=== PATIENT | male | born 1975 | race Caucasian/White ===

== ENCOUNTER 2018-03-12 17:11 | Inpatient (IN) | payer MEDICARE ==
[~2018-03-12] VITALS: Ht 149.9 cm; Wt 59.5 kg
[2018-03-12] MEDS ORDERED: DIPROLENE 0.05%50 GM TOPICAL (17:20)
[2018-03-12] MEDS ORDERED: TEMOVATE 0.05%15 G1 TOPICAL (17:20)
[2018-03-12] MEDS ORDERED: MULTI-DAY VITAM1 TAB PO (17:21)
[2018-03-12] MEDS ORDERED: MIRALAX17 GM PO (17:21)
[2018-03-12] MEDS ORDERED: PROZAC40 MG PO (17:21)
[2018-03-12] MEDS ORDERED: DOK100 MG PO (17:21)
[2018-03-12] MEDS ORDERED: NAPROSYN500 MG PO (17:22)
[2018-03-12] MEDS ORDERED: ZOFRAN4 MG PO (17:22)
[2018-03-12] MEDS ORDERED: OMEPRAZOLE40 MG PO (17:22)
[2018-03-12] MEDS ORDERED: PHENERGAN DM SYR5 ML PO (17:23)
[2018-03-12] MEDS ORDERED: TESSALON PERLE100 MG PO (17:23)
[2018-03-12 17:58] LABS: BASOPHILS 0.4 % (0-2); EOSINOPHILS 1.5 % (0-7); HEMATOCRIT 30.6 % (42.0-54.0); HEMOGLOBIN 9.7 g/dL (13.5-17.5); IMMATURE GRANULOCYTES 1.1 % (0-5); LYMPHOCYTES 10.2 % (15-50); MCH 28.2 pg (26.0-34.0); MCHC 31.7 g/dL (31.0-37.0); MEAN PLATELET VOLUME 11.3 fL (7.4-10.4); MONOCYTES 7.8 % (2-11); RBC 3.44 10x6/uL (4.20-6.10); RDW 16.2 % (11.5-14.5); WBC 15.2 10x3/uL (4.8-10.8)
[2018-03-12 18:00] LABS: PLATELET COUNT 341 10x3/uL (130-400)
[2018-03-12 18:16] LABS: ALBUMIN 1.8 g/dL (3.4-5.0); ANION GAP 12.7 mmol/L (8-16); BILIRUBIN - TOTAL 0.29 mg/dL (0.2-1.3); CARBON DIOXIDE 28.7 mmol/L (21.0-32.0); CREATININE - SERUM 1.2 mg/dL (0.6-1.3); POTASSIUM - SERUM 4.4 mmol/L (3.5-5.1); PROTEIN - SERUM 7.8 g/dL (6.4-8.2)
[2018-03-12 19:38] LABS: CKMB 0.3 U/L (0.0-3.6); CREATINE KINASE 22 UL (21-232); PRO BNP 309 pg/mL (0-125); TROPONIN-I < 0.017 ng/mL (0.000-0.060)
[2018-03-13] VITALS (8 sets, daily range): BP systolic 99–124; BP diastolic 51–78; Ht 149.9 cm; Wt 59.5 kg
[2018-03-13 06:37] LABS: ANION GAP 12.3 mmol/L (8-16); CALCIUM 8.7 mg/dL (8.5-10.1); CARBON DIOXIDE 27.7 mmol/L (21.0-32.0); CREATININE - SERUM 1.3 mg/dL (0.6-1.3)
[2018-03-13 06:47] LABS: BASOPHILS 0.3 % (0-2); EOSINOPHILS 1.1 % (0-7); HEMOGLOBIN 9.2 g/dL (13.5-17.5); LYMPHOCYTES 6.9 % (15-50); MCHC 31.7 g/dL (31.0-37.0); MCV 88.1 fL (80.0-100.0); MEAN PLATELET VOLUME 11.4 fL (7.4-10.4); MONOCYTES 7.5 % (2-11); NEUTROPHILS 83.2 % (40-80); PLATELET COUNT 339 10x3/uL (130-400); RBC 3.29 10x6/uL (4.20-6.10); RDW 16.1 % (11.5-14.5); WBC 15.6 10x3/uL (4.8-10.8)
[2018-03-13 17:00] LABS: % SATURATION 12 % (15-55); IRON 19 ug/dl (35-150); TOTAL IRON BIND CAPACITY 157 ug/dl (260-445); UNSAT IRON BIND CAPACITY 138 ug/dl (150-375)
[2018-03-14] VITALS (8 sets, daily range): BP systolic 95–142; BP diastolic 55–70
[2018-03-14 01:21] LABS: APPEARANCE CLEAR (CLEAR); BILIRUBIN NEGATIVE (NEGATIVE); COLOR YELLOW (YELLOW); GLUCOSE NEGATIVE (NEGATIVE); KETONE NEGATIVE (NEGATIVE); NITRITE NEGATIVE (NEGATIVE); PROTEIN NEGATIVE (NEGATIVE); SPECIFIC GRAVITY 1.015 (1.005-1.020); UROBILINOGEN NORMAL (NORMAL)
[2018-03-14 11:42] LABS: BASOPHILS 0.2 % (0-2); EOSINOPHILS 0.4 % (0-7); HEMOGLOBIN 9.3 g/dL (13.5-17.5); LYMPHOCYTES 9.4 % (15-50); MCH 28.3 pg (26.0-34.0); MCHC 32.1 g/dL (31.0-37.0); MCV 88.1 fL (80.0-100.0); MEAN PLATELET VOLUME 11.4 fL (7.4-10.4); MONOCYTES 7.6 % (2-11); NEUTROPHILS 81.4 % (40-80); PLATELET COUNT 332 10x3/uL (130-400); RBC 3.29 10x6/uL (4.20-6.10); RDW 16.5 % (11.5-14.5); WBC 16.3 10x3/uL (4.8-10.8)
[2018-03-14 11:54] LABS: APTT 32.5 SECONDS (22.8-39.4); INR 1.27 (0.85-1.17); PROTIME 15.3 SECONDS (11.6-15.0)
[2018-03-14 11:58] LABS: ANION GAP 11.7 mmol/L (8-16); CALCIUM 8.1 mg/dL (8.5-10.1); CARBON DIOXIDE 28.2 mmol/L (21.0-32.0); CREATININE - SERUM 1.5 mg/dL (0.6-1.3); POTASSIUM - SERUM 3.9 mmol/L (3.5-5.1)
--- NOTE | 2018-03-14 13:29 | EC ---
PATIENT:SOBEIDA PEREZ DATE OF SERVICE: 03/12/18 SEX: M MEDICAL RECORD: [id number] DATE OF : 75 LOCATION:D.M2 D.213 AGE OF PATIENT: 42 ADMISSION DATE: 03/12/18 REFERRING PHYSICIAN: INTERPRETING PHYSICIAN: JOSE FRANCO MD ECHOCARDIOGRAM REPORT ECHO CHARGES 4 ECHO COMPLETE Date: 03/14/18 CLINICAL DIAGNOSIS: CHF ECHOCARDIOGRAPHIC MEASUREMENTS (adult normal given) AC root (d.<3.7cm) 3.7 cm LV Septum d (<1.2 cm> 1.4 cm Valve Excursion 1.5 cm LV Septum (systole) 1.7 cm Left Atria (s.<4.0cm> 3.0 cm LVPW d(<1.2cm) 1.7 cm RV (d.<2.3cm) 2.8 cm LVPW (sytole) 1.9 cm LV diastole(<5.6CM) 3.0 cm MV E-F(>70mm/sec) cm LV systole 1.7 cm LVOT Diameter 1.8 cm MV exc.(>10mm) cm Est.ejection fraction (50-75%) % DOPPLER: LVIT cm/sec A 73 cm/sec E 60 cm/sec LA cm/sec RVSP 10.0 mmHg LVOT 85 cm/sec AOP1/2T m/s Asc. Ao 128 cm/sec RVOT 90 cm/sec RA cm/sec PA 128 cm/sec AV Gradient Peak 6.59 mmHg AV Mean 3.69 mmHg AV Area 1.8 cm MV Gradient Peak mmHg MV Mean mmHg MV Area cm COMMENTS: Program Clerk: Rogers ABREU Cycle Repairer: 1 Dr. Franco TAPE# PACS Pericardial Effusion N DATE OF SERVICE: 03/13/2018 PROCEDURE: Echocardiogram. FINDINGS: 1. Left ventricular chamber size is within normal limits. Left ventricular systolic function is normal. Overall ejection fraction estimated at 55%. 2. Left atrium, right atrium, and right ventricle chamber sizes are within normal limits. 3. Valvular structures have normal structure and motion. ECHOCARDIOGRAM REPORT [id number] SOBEIDA PEREZ 4. Doppler interrogation reveals no significant valvular insufficiency or stenosis and pulmonary systolic pressure is normal estimated 10 mmHg. 5. No evidence of pericardial effusion or left ventricular thrombus. 6. Large pleural effusion is noted. TRANSINT:[id number] Voice Confirmation ID: [id number] DOCUMENT ID: [id number] JOSE FRANCO MD at 1329 CC: [id number] DICTATION DATE: 03/14/18 1222 UNIFORMER: 03/14/18 1253 ADM IN [place] [id number] [place] [id number]
[2018-03-14 18:26] LABS: PROTEIN - BODY FLUID 1.1 G/DL
[2018-03-14 20:02] LABS: EOS BF 4 %; MACROPHAGES BF 7 %; MESOTHELIALS BF 5 %; NEUT - BF 28 %
[2018-03-15] VITALS: BP 100/63
[2018-03-15 04:00] VITALS: BP 100/66
[2018-03-15 04:43] LABS: BASOPHILS 0.7 % (0-2); EOSINOPHILS 1.9 % (0-7); HEMATOCRIT 26.7 % (42.0-54.0); HEMOGLOBIN 8.5 g/dL (13.5-17.5); IMMATURE GRANULOCYTES 1.3 % (0-5); LYMPHOCYTES 15.5 % (15-50); MCH 27.9 pg (26.0-34.0); MCHC 31.8 g/dL (31.0-37.0); MCV 87.5 fL (80.0-100.0); MEAN PLATELET VOLUME 11.4 fL (7.4-10.4); MONOCYTES 8.5 % (2-11); NEUTROPHILS 72.1 % (40-80); PLATELET COUNT 332 10x3/uL (130-400); RBC 3.05 10x6/uL (4.20-6.10); RDW 16.6 % (11.5-14.5)
[2018-03-15 04:50] LABS: ANION GAP 10.5 mmol/L (8-16); CALCIUM 8.3 mg/dL (8.5-10.1); CARBON DIOXIDE 30.7 mmol/L (21.0-32.0); CREATININE - SERUM 1.4 mg/dL (0.6-1.3)
[2018-03-15 04:51] LABS: POTASSIUM - SERUM 3.2 mmol/L (3.5-5.1)
[2018-03-15 08:08] VITALS: BP 104/64
[2018-03-15 08:22] LABS: FOLATE (FOLIC ACID) - SERUM >20.0 ng/mL (>3.0)
[2018-03-15 11:08] VITALS: BP 103/66
[2018-03-15 15:37] VITALS: BP 109/73
[2018-03-15 21:09] VITALS: BP 96/58
[2018-03-16] VITALS: BP 101/63
[2018-03-16 04:00] VITALS: BP 105/72
[2018-03-16 05:51] LABS: ANION GAP 13.8 mmol/L (8-16); CALCIUM 8.6 mg/dL (8.5-10.1); CARBON DIOXIDE 29.6 mmol/L (21.0-32.0); CREATININE - SERUM 1.3 mg/dL (0.6-1.3); POTASSIUM - SERUM 3.4 mmol/L (3.5-5.1)
[2018-03-16 06:00] LABS: BASOPHILS 1.1 % (0-2); EOSINOPHILS 3.5 % (0-7); HEMATOCRIT 29.9 % (42.0-54.0); HEMOGLOBIN 9.5 g/dL (13.5-17.5); IMMATURE GRANULOCYTES 2.4 % (0-5); LYMPHOCYTES 20.6 % (15-50); MCH 27.8 pg (26.0-34.0); MCHC 31.8 g/dL (31.0-37.0); MCV 87.4 fL (80.0-100.0); MEAN PLATELET VOLUME 11.3 fL (7.4-10.4); MONOCYTES 10.5 % (2-11); NEUTROPHILS 61.9 % (40-80); PLATELET COUNT 346 10x3/uL (130-400); RBC 3.42 10x6/uL (4.20-6.10); RDW 16.7 % (11.5-14.5)
[2018-03-16 06:02] LABS: WBC 6.6 10x3/uL (4.8-10.8)
[2018-03-16 07:49] VITALS: BP 112/64
[2018-03-16 11:00] VITALS: BP 119/64
[2018-03-16 16:16] LABS: ACID FAST SMEAR Negative (()); AFB SPECIMEN PROCESSING Concentration (())
[2018-03-16 17:02] VITALS: BP 101/61
[2018-03-16 20:00] VITALS: BP 105/70
[2018-03-17] VITALS (7 sets, daily range): BP systolic 99–116; BP diastolic 62–71
[2018-03-17 06:45] LABS: ANION GAP 14.2 mmol/L (8-16); CALCIUM 8.8 mg/dL (8.5-10.1); CARBON DIOXIDE 29.8 mmol/L (21.0-32.0); CREATININE - SERUM 1.6 mg/dL (0.6-1.3)
[2018-03-17 07:04] LABS: BASOPHILS 1.7 % (0-2); EOSINOPHILS 2.8 % (0-7); HEMOGLOBIN 9.4 g/dL (13.5-17.5); IMMATURE GRANULOCYTES 2.8 % (0-5); LYMPHOCYTES 26.1 % (15-50); MCH 27.7 pg (26.0-34.0); MCHC 31.3 g/dL (31.0-37.0); MCV 88.5 fL (80.0-100.0); MEAN PLATELET VOLUME 11.6 fL (7.4-10.4); MONOCYTES 12.3 % (2-11); NEUTROPHILS 54.3 % (40-80); PLATELET COUNT 414 10x3/uL (130-400); RBC 3.39 10x6/uL (4.20-6.10); RDW 16.5 % (11.5-14.5); WBC 5.3 10x3/uL (4.8-10.8)
[2018-03-17 14:26] LABS: FUNGUS STAIN Final report (())
[2018-03-18 03:55] VITALS: BP 105/69
[2018-03-18 07:33] LABS: ANION GAP 13.3 mmol/L (8-16); CALCIUM 8.9 mg/dL (8.5-10.1); CARBON DIOXIDE 29.9 mmol/L (21.0-32.0); CREATININE - SERUM 1.7 mg/dL (0.6-1.3); POTASSIUM - SERUM 3.2 mmol/L (3.5-5.1)
[2018-03-18 07:44] LABS: BASOPHILS 2.3 % (0-2); EOSINOPHILS 3.9 % (0-7); HEMATOCRIT 32.5 % (42.0-54.0); HEMOGLOBIN 10.2 g/dL (13.5-17.5); IMMATURE GRANULOCYTES 2.5 % (0-5); LYMPHOCYTES 25.9 % (15-50); MCHC 31.4 g/dL (31.0-37.0); MCV 89.3 fL (80.0-100.0); MEAN PLATELET VOLUME 10.8 fL (7.4-10.4); MONOCYTES 11.1 % (2-11); NEUTROPHILS 54.3 % (40-80); PLATELET COUNT 438 10x3/uL (130-400); RBC 3.64 10x6/uL (4.20-6.10); RDW 16.9 % (11.5-14.5); WBC 4.9 10x3/uL (4.8-10.8)
[2018-03-18 10:41] VITALS: BP 114/42
[2018-03-18 14:29] VITALS: BP 91/60
[2018-03-18 17:11] VITALS: BP 127/51
[2018-03-18 20:30] VITALS: BP 102/69
[2018-03-19 04:30] VITALS: BP 96/65
[2018-03-19 09:08] LABS: BASOPHILS 2.8 % (0-2); HEMATOCRIT 30.8 % (42.0-54.0); HEMOGLOBIN 9.5 g/dL (13.5-17.5); IMMATURE GRANULOCYTES 2.5 % (0-5); LYMPHOCYTES 26.6 % (15-50); MCH 28.1 pg (26.0-34.0); MCHC 30.8 g/dL (31.0-37.0); MCV 91.1 fL (80.0-100.0); MEAN PLATELET VOLUME 11.1 fL (7.4-10.4); NEUTROPHILS 50.1 % (40-80); PLATELET COUNT 392 10x3/uL (130-400); RBC 3.38 10x6/uL (4.20-6.10); RDW 17.3 % (11.5-14.5); WBC 4.3 10x3/uL (4.8-10.8)
[2018-03-19 09:18] VITALS: BP 135/54
[2018-03-19 09:24] LABS: ANION GAP 13.2 mmol/L (8-16); CALCIUM 9.1 mg/dL (8.5-10.1); CREATININE - SERUM 1.7 mg/dL (0.6-1.3); POTASSIUM - SERUM 3.2 mmol/L (3.5-5.1); VANCOMYCIN - TROUGH 20.9 ug/mL (10.0-20.0)
[2018-03-19 14:25] VITALS: BP 102/66
[2018-03-19 20:30] VITALS: BP 116/71
[2018-03-20 04:30] VITALS: BP 92/61
[2018-03-20 05:34] LABS: BASOPHILS 2.7 % (0-2); EOSINOPHILS 3.2 % (0-7); HEMATOCRIT 28.8 % (42.0-54.0); HEMOGLOBIN 8.9 g/dL (13.5-17.5); IMMATURE GRANULOCYTES 1.4 % (0-5); LYMPHOCYTES 22.5 % (15-50); MCH 28.3 pg (26.0-34.0); MCHC 30.9 g/dL (31.0-37.0); MCV 91.7 fL (80.0-100.0); MONOCYTES 10.4 % (2-11); NEUTROPHILS 59.8 % (40-80); PLATELET COUNT 413 10x3/uL (130-400); RBC 3.14 10x6/uL (4.20-6.10); RDW 18.2 % (11.5-14.5)
[2018-03-20 05:39] LABS: WBC 5.9 10x3/uL (4.8-10.8)
[2018-03-20 06:15] LABS: ANION GAP 12.4 mmol/L (8-16); CALCIUM 8.6 mg/dL (8.5-10.1); CARBON DIOXIDE 28.6 mmol/L (21.0-32.0); CREATININE - SERUM 1.7 mg/dL (0.6-1.3)
[2018-03-20 10:14] VITALS: BP 102/52
[2018-03-20 19:55] VITALS: BP 101/62
[2018-03-21 00:11] VITALS: BP 118/61
[2018-03-21 03:50] VITALS: BP 121/73
[2018-03-21 07:32] LABS: BASOPHILS 2.6 % (0-2); EOSINOPHILS 3.4 % (0-7); HEMATOCRIT 28.1 % (42.0-54.0); HEMOGLOBIN 8.7 g/dL (13.5-17.5); LYMPHOCYTES 27.4 % (15-50); MCH 28.6 pg (26.0-34.0); MCV 92.4 fL (80.0-100.0); MEAN PLATELET VOLUME 10.6 fL (7.4-10.4); MONOCYTES 10.5 % (2-11); NEUTROPHILS 55.1 % (40-80); PLATELET COUNT 426 10x3/uL (130-400); RBC 3.04 10x6/uL (4.20-6.10); RDW 19.1 % (11.5-14.5)
[2018-03-21 07:37] LABS: ANION GAP 12.2 mmol/L (8-16); CALCIUM 8.5 mg/dL (8.5-10.1); CARBON DIOXIDE 28.6 mmol/L (21.0-32.0); CREATININE - SERUM 1.6 mg/dL (0.6-1.3); POTASSIUM - SERUM 3.8 mmol/L (3.5-5.1)
[2018-03-21 09:47] VITALS: BP 98/63
--- NOTE | 2018-03-21 17:10 | MORECARE ---
CASE MANAGEMENT DISCHARGE SUMMARY PATIENT: SOBEIDA PEREZ UNIT: [id number] ADM DATE: 03/12/18 AGE: 42 : [birth year] SEX: M ROOM/BED: D.2131 AUTHOR: BRY HANDY PHYSICIAN: REFERRING PHYSICIAN: STALIN SALDIVAR MD DATE OF SERVICE: 03/21/18 Discharge Plan Patient Name: SOBEIDA PEREZ [facility] [facility] 1975 Planned Disposition: Home Anticipated Discharge Date: 03/22/18 Discharge Date: Expected LOS: 10 Initial Reviewer: [email or web address] Initial Review Date: 03/21/2018 Generated: 03/21/18 6:10 pm DCPIA - Discharge Planning Initial Assessment Updated by [email or web address]: Yahaira Desouza on 03/21/18 5:09 pm * How many steps to enter\exit or inside your home? * PCP DR. GALLO * [facility] [address] * Preadmission Environment Home Alone * ADLs Partial Dependent * Partial ADLs (Assistance needed) Medication Management * Equipment None * List name and contact numbers for known caregivers / representatives who currently or will assist patient after discharge: LORENA PEREZ ([facility]) [phone] * Verbal permission to speak to the caregivers and representatives has been obtained from the patient. Yes * Community resources currently utilized Other * Please name any agencies selected above. [facility] * Additional services required to return to the preadmission environment? Yes * Can the patient safely return to the preadmission environment? Yes * Has this patient been hospitalized within the prior 30 days at any hospital? No Patient Name: SOBEIDA PEREZ Page [id number] at 1710 All edits/amendments must be made on the electronic document DICTATION DATE: 03/21/181709 TAG STRINGER: TABATHA 03/21/181709 RPT#: [id number] DC DATE: STATUS: ADM IN [facility] [address] [place] [address] END OF REPORT
--- NOTE | 2018-03-21 17:20 | MORECARE ---
CASE MANAGEMENT DISCHARGE SUMMARY PATIENT: SOBEIDA PEREZ UNIT: [id number] ADM DATE: 03/12/18 AGE: 42 : 75 SEX: M ROOM/BED: D.2131 AUTHOR: BRY HANDY PHYSICIAN: REFERRING PHYSICIAN: STALIN SALDIVAR MD DATE OF SERVICE: 03/21/18 Discharge Plan Patient Name: SOBEIDA PEREZ Facility: [facility]:[place] : 1975 Planned Disposition: Home Anticipated Discharge Date: 03/22/18 Discharge Date: Expected LOS: 10 Initial Reviewer: [email or web address] Initial Review Date: 03/21/2018 Generated: 03/21/18 6:20 pm Comments DCP- Discharge Planning Updated by [email or web address]: Yahaira Desouza on 03/21/18 4:[address] Patient Name: SOBEIDA PEREZ Admission Status: ER Accout number: [id number] Admission Date: 03-12-2018 : 1975 Admission Diagnosis:SHORTNESS OF BREATH Attending: STALIN SALDIVAR Current LOS: 9 Anticipated DC Date: 03-22-2018 Planned Disposition: Home Primary Insurance: MEDICARE A & B Discharge Planning Comments: CM MET WITH PATIENT AND FATHER (LORENA) REGARDING D/C NEEDS AND PLANS. FATHER STATED HIS SON LIVES IN THE [facility] [place] [facility] ON [address]. PATIENT WILL BE GOING HOME WITH HIS MOTHER AND FATHER FOR AWHILE AT D/C. FAMILY WILL DRIVE HIM THERE. PATIENTS PCP IS DR. GALLO [facility] ON [address] FATHER STATED HIS SON HAS NO DME AND WOULD NOT NEED HOME HEALTH AT DISCHARGE. CM WILL CONTINUE TO FOLLOW PATIENT WITH D/C NEEDS AND PLANS. PCP DR. CLEO HERNANDEZ [place]. ON [address] LORENA PEREZ (FATHER) [phone] Can Marker: Yahaira Desouza DCPIA - Discharge Planning Initial Assessment Updated by [email or web address]: Yahaira Desouza on 03/21/18 5:09 pm * How many steps to enter\exit or inside your home? * PCP DR. GALLO * [facility] [address] * Preadmission Environment Home Alone * ADLs Partial Dependent * Partial ADLs (Assistance needed) Medication Management * Equipment None * List name and contact numbers for known caregivers / representatives who currently or will assist patient after discharge: LORENA PEREZ (DAD) [phone] * Verbal permission to speak to the caregivers and representatives has been obtained from the patient. Yes * Community resources currently utilized Other * Please name any agencies selected above. [facility] * Additional services required to return to the preadmission environment? Yes * Can the patient safely return to the preadmission environment? Yes * Has this patient been hospitalized within the prior 30 days at any hospital? No Last DP export: 03/21/18 4:10 p Patient Name: SOBEIDA PEREZ Page [phone] at 1720 All edits/amendments must be made on the electronic document DICTATION DATE: 03/21/181719 CHARTERED FINANCIAL ANALYST: TABATHA 03/21/181719 RPT#: [id number] DC DATE: STATUS: ADM IN [facility] [address] [place] [address] END OF REPORT
[2018-03-21 20:41] VITALS: BP 110/62
[2018-03-22 00:38] VITALS: BP 107/65
[2018-03-22 04:34] VITALS: BP 100/63
[2018-03-22 06:01] LABS: BASOPHILS 3.3 % (0-2); EOSINOPHILS 5.3 % (0-7); HEMATOCRIT 28.1 % (42.0-54.0); HEMOGLOBIN 8.8 g/dL (13.5-17.5); LYMPHOCYTES 30.3 % (15-50); MCH 28.9 pg (26.0-34.0); MCHC 31.3 g/dL (31.0-37.0); MCV 92.1 fL (80.0-100.0); MEAN PLATELET VOLUME 10.4 fL (7.4-10.4); MONOCYTES 9.5 % (2-11); NEUTROPHILS 50.6 % (40-80); PLATELET COUNT 438 10x3/uL (130-400); RBC 3.05 10x6/uL (4.20-6.10); RDW 19.7 % (11.5-14.5); WBC 4.2 10x3/uL (4.8-10.8)
[2018-03-22 06:29] LABS: ANION GAP 13.6 mmol/L (8-16); CALCIUM 8.7 mg/dL (8.5-10.1); CARBON DIOXIDE 26.2 mmol/L (21.0-32.0); CREATININE - SERUM 1.6 mg/dL (0.6-1.3); POTASSIUM - SERUM 3.8 mmol/L (3.5-5.1)
[2018-03-22 08:19] VITALS: BP 105/69
[2018-03-22 12:04] VITALS: BP 112/71
[2018-03-22 14:19] LABS: FUNGUS MYCOLOGY CULTURE Preliminary report (())
[2018-03-22] MEDS ORDERED: DOXYCYCLINE HY100 M2 PO (15:04)
--- NOTE | 2018-03-22 15:23 | MORECARE ---
CASE MANAGEMENT DISCHARGE SUMMARY PATIENT: SOBEIDA PEREZ UNIT: [id number] ADM DATE: 03/12/18 AGE: 42 : 75 SEX: M ROOM/BED: D.2131 AUTHOR: ROZINADOC PHYSICIAN: REFERRING PHYSICIAN: STALIN SALDIVAR MD DATE OF SERVICE: 03/22/18 Discharge Plan Patient Name: SOBEIDA PEREZ Facility: [facility]:[place] : 1975 Planned Disposition: Home Anticipated Discharge Date: 03/22/18 Discharge Date: Expected LOS: 10 Initial Reviewer: [email or web address] Initial Review Date: 03/21/2018 Generated: 03/22/18 4:23 pm Comments DCP- Discharge Planning Updated by [email or web address]: Obinna Mckeon on 03/22/18 2:[address] Patient Name: SOBEIDA PEREZ Admission Status: ER Accout number: [id number] Admission Date: 03-12-2018 : 1975 Admission Diagnosis:SHORTNESS OF BREATH Attending: STALIN SALDIVAR Current LOS: 10 Anticipated DC Date: 03-22-2018 Planned Disposition: Home Primary Insurance: MEDICARE A & B Discharge Planning Comments: CM RECEIVED DISCHARGE ORDER, MET WITH PT AND HIS FATHER IN ROOM. PT WILL BE GOING TO STAY WITH HIS MOTHER AND FATHER AT [address] [place], [place] [id number]. LORENA PEREZ, FATHER, . EREN PEREZ, MOTHER, . PT AND FATHER DENIED DISCHARGE NEEDS, FATHER TO DISCHARGE HOME AND THEY WILL ACCEPT [facility]. CM CALLED [facility], , SPOKE TO [place], PROVIDED THE ABOVE INFORMATION FOR [facility] TO SCHEDULE FOLLOW UP AT HOME. NO FURTHER NEEDS IDENTIFIED. Student Recruiter: Obinna Mckeon DCP- Discharge Planning Updated by [id number]: Yahaira Desouza on 03/21/18 4:[address] Patient Name: SOBEIDA PEREZ Admission Status: ER Accout number: [id number] Admission Date: 03-12-2018 : 1975 Admission Diagnosis:SHORTNESS OF BREATH Attending: STALIN SALDIVAR Current LOS: 9 Anticipated DC Date: 03-22-2018 Planned Disposition: Home Primary Insurance: MEDICARE A & B Discharge Planning Comments: CM MET WITH PATIENT AND FATHER (LORENA) REGARDING D/C NEEDS AND PLANS. FATHER STATED HIS SON LIVES IN THE FIRST [place] APARTMENTS ON [address] PATIENT WILL BE GOING HOME WITH HIS MOTHER AND FATHER FOR AWHILE AT D/C. FAMILY WILL DRIVE HIM THERE. PATIENTS PCP IS DR. GALLO [facility] [address] FATHER STATED HIS SON HAS NO DME AND WOULD NOT NEED HOME HEALTH AT DISCHARGE. CM WILL CONTINUE TO FOLLOW PATIENT WITH D/C NEEDS AND PLANS. [facility] [address] LORENA PEREZ (FATHER) [phone] Student Recruiter: Yahaira Desouza [facility] - Discharge Planning Initial Assessment Updated by [email or web address]: Yahaira Desouza on 03/21/18 5:09 pm * How many steps to enter\exit or inside your home? * PCP DR. GALLO * [facility] [address] * Preadmission Environment Home Alone * ADLs Partial Dependent * Partial ADLs (Assistance needed) Medication Management * Equipment None * List name and contact numbers for known caregivers / representatives who currently or will assist patient after discharge: LORENA PEREZ (DAD) [phone] * Verbal permission to speak to the caregivers and representatives has been obtained from the patient. Yes * Community resources currently utilized Other * Please name any agencies selected above. [facility] * Additional services required to return to the preadmission environment? Yes * Can the patient safely return to the preadmission environment? Yes * Has this patient been hospitalized within the prior 30 days at any hospital? No Coverage Notice Reviewer: [id number] - Obinna Mckeon Notice Issued Date-Time: 03/22/2018 14:55 Notice Type: IM Discharge Notice Notice Delivered To: Patient Relationship to Patient: Double Spindle Shaper Operator Name: Delivery Method: HAND - Hand Delivered Poornima Days: Prior Verbal Notification: Recipient Understood Notice: Yes Recipient Signature: Yes Med Rec Note Co-signed by Attending: Coverage Notice Comment: Last DP export: 03/21/18 4:20 p Patient Name: SOBEIDA PEREZ Page [phone] at 1523 All edits/amendments must be made on the electronic document DICTATION DATE: 03/22/181521 HYDROELECTRIC PLANT MAINTAINER: TABATHA 03/22/181521 RPT#: [id number] DC DATE: STATUS: ADM IN [facility] [address] [place] [address] END OF REPORT
[2018-03-24 19:10] LABS: AEROBE ID Final report (())
== END 2018-03-22 16:10 | disposition home or self-care (01) | DRG 177 ==
LOC: D.ER 17:11 → D.M2 21:02
PROVIDERS: Emergency Medicine; Family Medicine; Internal Medicine Nephrology; Specialist; ADMIT Family Medicine
PROC: 0W9B30Z Drainage of Left Pleural Cavity with Drainage Device, Percutaneous Approach (ICD-10-PCS; principal; 2018-03-14 16:00)
DX: J86.9 Pyothorax without fistula (principal); J18.9 Pneumonia, unspecified organism; I50.21 Acute systolic (congestive) heart failure; K59.09 Other constipation; Q90.9 Down syndrome, unspecified; I73.00 Raynaud's syndrome without gangrene; D50.9 Iron deficiency anemia, unspecified; K21.9 Gastro-esophageal reflux disease without esophagitis; E87.6 Hypokalemia; B95.8 Unspecified staphylococcus as the cause of diseases classified elsewhere; B95.5 Unspecified streptococcus as the cause of diseases classified elsewhere

== ENCOUNTER → 2018-08-15 09:11 | Outpatient (CLI) | payer MEDICARE ==
[2018-03-13 16:31] VITALS: BMI 30.2
[~2018-08-15 09:11] MED LIST: DIPROLENE 0.05%50 GM TOPICAL; DOK100 MG PO; DOXYCYCLINE HY100 M2 PO; MIRALAX17 GM PO; MULTI-DAY VITAM1 TAB PO; NAPROSYN500 MG PO; OMEPRAZOLE40 MG PO; PHENERGAN DM SYR5 ML PO; PROZAC40 MG PO; TEMOVATE 0.05%15 G1 TOPICAL; TESSALON PERLE100 MG PO; ZOFRAN4 MG PO
== END | disposition home or self-care (01) ==
LOC: D.CT 09:11
PROVIDERS: ATTEND Internal Medicine Pulmonary Disease
DX: J90 Pleural effusion, not elsewhere classified (principal)

== ENCOUNTER → 2019-02-15 09:47 | Outpatient (CLI) | payer MEDICARE ==
[2018-03-13 16:31] VITALS: BMI 30.2
== END | disposition home or self-care (01) ==
LOC: D.CT 09:47
PROVIDERS: ATTEND Internal Medicine Pulmonary Disease
DX: R91.1 Solitary pulmonary nodule (principal)

== ENCOUNTER 2019-10-17 16:48 | Emergency (ER) | payer MEDICARE, OTHER ==
[~2019-10-17] VITALS: Ht 149.9 cm; Wt 86.4 kg
[2019-10-17 16:54] VITALS: BP 114/92; Ht 149.9 cm; Wt 86.4 kg
== END 2019-10-17 18:07 | disposition home or self-care (01) ==
LOC: D.ER 16:48
DX: Q90.9 Down syndrome, unspecified (principal); S00.81XA Abrasion of other part of head, initial encounter; X58.XXXA Exposure to other specified factors, initial encounter; R62.50 Unspecified lack of expected normal physiological development in childhood; R01.1 Cardiac murmur, unspecified; I49.9 Cardiac arrhythmia, unspecified